=== PATIENT | female | born 1985 | race Caucasian/White ===

== ENCOUNTER 2017-05-31 19:41 | Emergency (ER) | payer OTHER ==
[2017-05-31 22:30] VITALS: BP 122/72
== END 2017-05-31 22:31 | disposition home or self-care (01) ==
LOC: ED 19:41
DX: S61.011A Laceration without foreign body of right thumb without damage to nail, initial encounter (principal); R03.0 Elevated blood-pressure reading, without diagnosis of hypertension; W25.XXXA Contact with sharp glass, initial encounter; Y93.89 Activity, other specified; Y99.8 Other external cause status; Y92.89 Other specified places as the place of occurrence of the external cause
CPT/HCPCS: 90715; J2001

== ENCOUNTER 2017-08-19 15:39 | Emergency (ER) | payer OTHER ==
[~2017-08-19] VITALS: Ht 157.5 cm; Wt 57.6 kg
[2017-08-19 15:45] VITALS: Ht 157.5 cm; Wt 57.6 kg
[2017-08-19 16:48] LABS: BASOPHIL % 0.4 % (0-2); PLATELET COUNT 220 x10^3mcL (130-400); RED CELL DISTRIBUTION WIDTH 12.5 % (11.5-14.5)
[2017-08-19 16:55] LABS: CALCIUM 8.7 mg/dL (8.5-10.1); CARBON DIOXIDE 24.1 mmol/L (21-32); CHLORIDE SERUM 104 mmol/L (98-107); CREATININE SERUM 0.7 mg/dL (0.6-1.0); GFR1 > 60 mL/min; GLUCOSE SERUM 92 mg/dL (74-106); POTASSIUM SERUM 3.6 mmol/L (3.5-5.1); SODIUM SERUM 139 mmol/L (136-145)
[2017-08-19 17:01] LABS: ALBUMIN 4.3 g/dL (3.4-5.0); ALKALINE PHOSPHATASE 61 U/L (46-116); ALT/SGPT 23 U/L (14-59); AMYLASE 48 U/L (25-115); AST/SGOT 18 U/L (15-37); BILIRUBIN TOTAL 1.4 mg/dL (0.20-1.00); LIPASE 94 IU/L (73-393); TOTAL PROTEIN, SERUM 7.8 g/dL (6.4-8.2)
[2017-08-19 17:09] LABS: AMPHETAMINE QUAL UR NONE DETECTED (NEG <=1000)
[2017-08-19 19:34] VITALS: BP 127/81
== END 2017-08-19 22:10 | disposition short-term general hospital (02) ==
LOC: ED 15:39
PROVIDERS: Emergency Medicine
DX: I61.9 Nontraumatic intracerebral hemorrhage, unspecified (principal); R07.9 Chest pain, unspecified; F12.90 Cannabis use, unspecified, uncomplicated; Z71.6 Tobacco abuse counseling
CPT/HCPCS: 36415; 85378; 99406; G0480

== ENCOUNTER 2018-07-09 19:59 | Emergency (ER) | payer OTHER ==
[~2018-07-09] VITALS: Ht 157.5 cm; Wt 59.4 kg
[2018-07-09 20:02] VITALS: Ht 157.5 cm; Wt 59.4 kg
[2018-07-09 22:58] VITALS: BP 133/79
== END 2018-07-09 22:58 | disposition home or self-care (01) ==
LOC: ED 19:59
DX: R55 Syncope and collapse (principal); R51 Headache; R42 Dizziness and giddiness; Z98.890 Other specified postprocedural states; Z98.82 Breast implant status
CPT/HCPCS: J8597; Q0162